=== PATIENT | female | born 1975 | race Caucasian/White ===

== ENCOUNTER 2017-01-12 17:08 | Emergency (ER) | payer OTHER ==
[2017-01-12] MEDS ORDERED: Ketorolac INJ* 30 MG/ML 1 ML VIAL IV ONE (17:58)
[2017-01-12] MEDS ORDERED: NS 0.9% 1000 ML* 1,000 ML IV ONE (17:58)
--- NOTE | 2017-01-12 18:07 | ED ---
Headache - HPI Summary HPI Summary: Patient presents to the ED from with "worst SCOTT of life," present x 4 days which is slowly becoming worse. She was seen at 5 days ago and dx with strep throat. She had a co-existing SCOTT at that time, but was a 5/10 and today is 10/10. Denies any health problems. She has had strep throat in the past and has taken amoxicillin without adverse reactions. She has been afebrile and denies sweats or chills. The SCOTT is diffuse, described as a pressure and intermittently sharp pains often awaking her from sleep. Endorses sensitivity to the light. Denies auras. Denies N/V/C/D. Denies chest pain or SOB. Denies rashes. Eating and drinking OK but less. Does not feel dehydrated. She was seen at who sent her here for a brain CT. She has been taking ibuprofen without relief. - History Of Current Complaint Chief Complaint: EDHeadache Stated Complaint: HEADACHE-SENT FROM [facility] Time Seen by Provider: 01/12/17 17:43 Hx Obtained From: Patient Onset/Duration: Sudden Onset Initially Headache Was: "Worst Headache Ever" Currently Pain Is: Current Pain Scale(0-10)= - 9 Timing: Constant Character: Sharp, Pressure Location of Headache: Diffuse Aggravating Factor: Bright Lights Allevating Factors: Rest - Risk Factors SAH Risk Factors: Negative Meningitis Risk Factors: Negative SDH Risk Factors: Negative Temporal Arteritis Risk Factors: Negative - Allergies/Home Medications Allergies/Adverse Reactions: Allergies Allergy/AdvReac Type Severity Reaction Status Date / Time Codeine Allergy Nausea And Verified 07/12/16 14:12 Vomiting PMH/Surg Hx/FS Hx/Imm Hx Previously Healthy: Yes Endocrine/Hematology History: Denies: Hx Diabetes Cardiovascular History: Denies: Hx Hypertension, Hx Pacemaker/ICD GI History: Reports: Hx Gastroesophageal Reflux Disease History: Denies: Hx Renal Disease Musculoskeletal History: Reports: Hx Arthritis, Other Musculoskeletal History - AC reconstruction, knees Sensory History: Denies: Hx Hearing Aid Neurological History: Reports: Hx Headaches, Other Neuro Impairments/Disorders - PAIN CLINIC PATIENT Psychiatric History: Denies: Hx Panic Disorder - Cancer History Hx Chemotherapy: No Hx Radiation Therapy: No - Surgical History Surgery Procedure, Year, and Place: right knee arthroscopy 1991, BILATERAL KNEE ACL reconstruction 1992 + 1993, rt shoulder bankart repair X2 (2004 and 2007), laproscopy removal of ovarian cyst, endometriosis. C SECTION 05/2010 Hx Anesthesia Reactions: No - Immunization History Hx Pertussis Vaccination: No Immunizations Up to Date: Unable to Obtain/Confirm Infectious Disease History: No Infectious Disease History: Denies: Traveled Outside the [place] in Last 30 Days - Social History Occupation: Employed Full-time Lives: With Family Alcohol Use: Occasionally Hx Substance Use: No Substance Use Type: Reports: None Hx Tobacco Use: No Smoking Status (MU): Never Smoked Tobacco Review of Systems Constitutional: Negative Negative: Fever, Chills, Fatigue, Skin Diaphoresis Eyes: Negative Negative: Photophobia, Blurred Vision, Diplopia, Drainage Positive: Sore Throat Cardiovascular: Negative Respiratory: Negative Genitourinary: Negative Positive: no symptoms reported, see HPI Musculoskeletal: Negative Skin: Negative Positive: Headache All Other Systems Reviewed And Are Negative: Yes Physical Exam Triage Information Reviewed: Yes Vital Signs On Initial Exam: Initial Vitals Temp Pulse Resp BP Pulse Ox 98 F 64 20 144/80 100 01/12/17 17:26 01/12/17 17:26 01/12/17 17:26 01/12/17 17:26 01/12/17 17:26 Vital Signs Reviewed: Yes Appearance: Positive: Pain Distress Skin: Positive: Warm, Skin Color Reflects Adequate Perfusion Head/Face: Positive: Normal Head/Face Inspection. Negative: Temporal Artery Tenderness, TMJ Tenderness, Scalp, Cephalohematoma Eyes: Positive: EOMI, FER, Conjunctiva Clear Neck: Positive: Supple, Nontender, No Lymphadenopathy Respiratory/Lung Sounds: Positive: Clear to Auscultation, Breath Sounds Present Cardiovascular: Positive: Normal, RRR, Pulses are Symmetrical in both Upper and Lower Extremities Musculoskeletal: Positive: Normal, Strength/ROM Intact Neurological: Positive: Speech Normal Psychiatric: Positive: Normal, Affect/Mood Appropriate - [place] Coma Scale Best Eye Response: 4 - Spontaneous Best Motor Response: 6 - Obeys Commands Best Verbal Response: 5 - Oriented Diagnostics - Vital Signs Vital Signs Temp Pulse Resp BP Pulse Ox 01/12/17 17:26 98 F 64 20 144/80 100 - Laboratory Result Diagrams: 01/12/17 18:31 01/12/17 18:31 Lab Statement: Any lab studies that have been ordered have been reviewed, and results considered in the medical decision making process. Headache Course/Dx - Course Course Of Treatment: Patient evaluated for worst SCOTT of life. CT brain: IMPRESSION: No intracranial mass or hemorrhage is noted. Labs evaluated and are WNL. 1L fluids given. Toradol 30mg IV without much relief. Patient would like to try sumatriptan. I have discussed strict return precautions and the option of changing the antibiotic, however, patient states the SCOTT was present prior to starting the antibiotic. She would like to try sumatriptan and agrees to return for any worsening or changing symptoms. NO other findings on exam including negative kernig's. - Diagnoses Differential Diagnosis/HQI/PQRI: Migraine, Tension Headache Provider Diagnoses: Headache Discharge - Discharge Plan Condition: Stable Disposition: HOME Prescriptions: SUMAtriptan TAB* [Imitrex TAB*] 50 mg PO Q2H PRN #20 tab MDD 200 PRN Reason: Headache Patient Education Materials: Acute Headache (ED) Referrals: Emilee Traylor MD [Primary Care Provider] - Additional Instructions: Please follow up with PCP in 2-3 days If you develop any worsening or changing symptoms, return to the ED immediately Sumatriptan should be taken at the first onset of headache and can be taken up to 2 hours later if no relief. Maximum dose for the day is 200mg (4 tabs total) You may also try ibuprofen 600mg intermittently Drink Plenty of fluids Get plenty of rest
[2017-01-12 18:41] LABS: Hematocrit 36 % (35-47); Hemoglobin 12.3 g/dl (12.0-16.0); Mean Corpuscular HGB Conc 34 g/dl (31-36); Mean Corpuscular Hemoglobin 31 pg (27-31); Mean Corpuscular Volume 91 fL (80-97); Mean Platelet Volume 9 um3 (7.4-10.4); Red Blood Count 3.97 10^6/ul (4.0-5.4); Red Cell Distribution Width 13 % (10.5-15); White Blood Count 5.8 10^3/ul (3.5-10.8)
--- NOTE | 2017-01-12 18:45 | RAD ---
Indication: Headaches. CT of the brain was performed without IV contrast. Ventricular structures are midline. No midline shift is noted. The extra-axial spaces are unremarkable. There is no evidence of intracranial mass or hemorrhage. No other high or low density lesions are identified. Mastoid air cells and paranasal sinuses are otherwise unremarkable. Bony calvaria are unremarkable. IMPRESSION: No intracranial mass or hemorrhage is noted.
[2017-01-12 18:57] LABS: Albumin 3.8 g/dL (3.2-5.2); BUN/Creatinine Ratio 10.8 (8-20); Calcium 9.1 mg/dL (8.6-10.3); EGFR African American 97.9 (>60); EGFR Non-African American 76.1 (>60); Globulin 2.8 g/dL (2-4); Potassium 4.1 mmol/L (3.5-5.0); Total Bilirubin 0.4 mg/dL (0.2-1.0); Total Protein 6.6 g/dL (6.4-8.9)
[2017-01-12 19:16] LABS: Urine Bacteria Absent (Absent); Urine Bilirubin Negative (Negative); Urine Glucose Negative (Negative); Urine Nitrite Negative (Negative)
[2017-01-12 20:18] LABS: Erythrocyte Sed Rate 33 mm/Hr (0-14)
[2017-01-12 20:23] VITALS: BP 148/75
== END 2017-01-12 20:25 | disposition home or self-care (01) ==
LOC: ED 17:08
DX: R51 Headache (principal)
CPT/HCPCS: 36415; 70450; 80053; 81003; 81015; 83605; 85025; 85652; 87086; 96360; 96374; 99282; J1885